=== PATIENT | male | born 1970 | race Caucasian/White ===

== ENCOUNTER 2021-09-25 14:45 | Observation (INO) ==
[2021-09-25] MEDS ORDERED: SODIUM CHLORIDE 0.9% 1000ML 1,000 ML IV STA (14:47)
--- NOTE | 2021-09-25 14:58 | Emergency Department Note ---
History of Present Illness General Chief complaint: Tachycardia Stated complaint: IRREFULAR HEARTBEAT Time Seen by Provider: 09/25/21 14:47 History of Present Illness This 50-year-old male presents today with his , for evaluation of dizziness and irregular heartbeat that developed yesterday. Patient states he was in his usual state of health and felt fine yesterday. He went for a 3 mile run in the afternoon. After the run, he developed dizziness. He thought it would go away, but it did not. He states he woke up around 3 AM to go to the bathroom. He was dizzy at that point and had difficulty ambulating. It persisted this morning. A physician friend came to see him this morning and felt that his heartbeat was irregular. They recommended he come to the ED for evaluation. He denies any history of irregular heartbeat. He states he has had a similar dizziness approximately 2 years ago while in [place]. He had a stress test at that point that was reportedly normal. No cause was found. He denies any history of heart issues. He denies any new medications other than a B vitamin supplement. He feels he eats very healthy and maintains his hydration. He does not smoke or drink. No other complaints. He denies any chest pain, shortness of breath, or leg pain. No headache or change in vision. He states he ate well today without issue. Home Medications Medication Instructions Recorded Confirmed Type vitamin B complex 1 tab PO DAILY 09/25/21 09/25/21 History Allergies Allergy/AdvReac Type Severity Reaction Status Date / Time Penicillins Allergy Severe HIVES, Verified 09/25/21 15:56 SWELLING OF THROAT--TOLD NOT TO TAKE Past Med/Surg History Medical History No pertinent past medical history Surgical History No pertinent past surgical history Family History Other No pertinent family history Social History Smoking Status: Never smoker Hx Alcohol Use: No Hx Substance Use: No Preferred Language: Azerbaijani Communication Ability: Effective Hearing Ability: Normal 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 Beliefs That Will Affect Care: None marital status: Current Living Situation: Spouse current occupational status: employed Other Information That Helps Us Care for You: No Feels Safe at Home: Yes Safety Concerns: Feels Safe At This Time Assistive Devices: None Review of Systems A total of 10 systems reviewed and were otherwise negative Physical Exam Vital Signs Vital Signs - 24 hr 09/25/21 14:57 09/25/21 15:30 09/25/21 16:30 Temperature 36.8 C Temperature Source Oral Pulse Rate 68 Pulse Rate [Apical] 69 74 Pulse Rhythm Irregular Pulse Rhythm [Apical] Irregular Irregular Respiratory Rate 19 14 14 Blood Pressure 136/93 Blood Pressure [Right Arm] 122/79 126/79 Blood Pressure Mean 107 Blood Pressure Mean [Right Arm] 93 94 Pulse Oximetry 98 97 96 Oxygen Delivery Method Room Air Room Air Room Air Sepsis Recent Fever Within 48 Hours No Sepsis New/Unexplained Change in Mental Status No Sepsis Action Taken by Nursing No Action Required 09/25/21 17:01 09/25/21 17:41 09/25/21 18:00 Temperature Temperature Source Pulse Rate Pulse Rate [Apical] 63 74 67 Pulse Rhythm Pulse Rhythm [Apical] Irregular Irregular Respiratory Rate 18 14 14 Blood Pressure Blood Pressure [Right Arm] 125/85 120/73 122/87 Blood Pressure Mean Blood Pressure Mean [Right Arm] 98 88 98 Pulse Oximetry 96 97 98 Oxygen Delivery Method Room Air Room Air Room Air Sepsis Recent Fever Within 48 Hours Sepsis New/Unexplained Change in Mental Status Sepsis Action Taken by Nursing 09/25/21 18:32 09/25/21 19:15 Temperature Temperature Source Pulse Rate Pulse Rate [Apical] 71 74 Pulse Rhythm Pulse Rhythm [Apical] Respiratory Rate 18 18 Blood Pressure Blood Pressure [Right Arm] 135/89 134/84 Blood Pressure Mean Blood Pressure Mean [Right Arm] 104 100 Pulse Oximetry 98 97 Oxygen Delivery Method Room Air Room Air Sepsis Recent Fever Within 48 Hours Sepsis New/Unexplained Change in Mental Status Sepsis Action Taken by Nursing General: Well-developed, well-nourished, middle-aged white male, in no acute distress. Laying on the bed. Alert and oriented. Conversive. Skin: Warm and dry with good turgor. No rashes or lesions. No ecchymosis or erythema. The patient is not diaphoretic. No abrasions. HEENT: Normocephalic atraumatic. Eyes PERRLA, EOMI. No conjunctiva or scleral injection. No nystagmus. Nares patent bilaterally without turbinate enlarg ement. No significant drainage. No epistaxis. Oropharynx without erythema or exudate. Uvula midline, oral mucosa moist. No lesions present. Lymphatics are palpated without anterior or posterior chain enlargement or tenderness. Heart: Irregularly irregular. No murmurs, gallops, or rubs. Peripheral pulses are 2+. Lungs: Lungs are clear to auscultation. No crackles rhonchi or wheezing. Good air movement. The patient is able to take a deep breath. Abdomen: Abdomen was inspected, auscultated, and palpated. Bowel sounds present x 4. Soft, nontender to palpation. No hepato-splenomegaly. No masses noted. No rebound. No CVA tenderness. Musculoskeletal: Gross motor function of the upper and lower extremities is intact and unremarkable. Neurologic: Cranial nerves II through XII are intact. Gross sensation is intact across the upper and lower extremities by soft touch. Course Administered Medications Discontinued Medications Apixaban (Apixaban 5 Mg Tablet) 5 mg PO ONE ONE Stop: 09/25/21 15:56 Last Admin: 09/25/21 16:22 Dose: 5 mg Documented by: [id number] Flecainide Acetate (Flecainide Acetate 100 Mg Tablet) 200 mg PO ONE ONE Stop: 09/25/21 15:55 Last Admin: 09/25/21 16:22 Dose: 200 mg Documented by: [id number] Flecainide Acetate (Flecainide Acetate 100 Mg Tablet) 100 mg PO ONE STA Stop: 09/25/21 17:53 Last Admin: 09/25/21 18:50 Dose: Not Given Documented by: [id number] Sodium Chloride (Nss 1000ml) 1,000 mls @ 999 mls/hr IV .Q1H1M STA Stop: 09/25/21 15:47 Last Infusion: 09/25/21 15:58 Dose: 0 mls/hr Documented by: [id number] Admin: 09/25/21 14:57 Dose: 999 mls/hr Documented by: [id number] Medical Decision Making Differential Diagnosis Atrial fibrillation, dehydration, vertigo, intracranial mass, anemia, arrhythmia Medical Records Attestation: I reviewed the patient's medical records. Home Medications Current Medication List: was personally reviewed by me Laboratory Data CBC, INR, TSH, and chemistry panel were obtained. They are all unremarkable. Troponin was also obtained today and is unremarkable. TSH is normal. Result diagrams: 09/25/21 14:45 09/25/21 14:45 Lab Results 09/25/21 09/25/21 09/25/21 Range/Units 14:45 14:45 14:45 WBC 6.42 (4.8-10.8) K/uL RBC 5.77 (4.7-6.1) M/uL Hgb 17.4 (14.0-18.0) g/dL Hct 49.0 (42-52) % MCV 84.9 (80-100) fL MCH 30.2 (25-34) pg MCHC 35.5 (32-36) g/dL RDW Std Deviation 39.1 (36.4-46.3) fL RDW Coeff of Kindra 12.6 (11.5-14.5) % Plt Count 216 (130-400) K/uL MPV 10.3 (7.4-10.4) fL Immature Gran % (Auto) 0.0 % Neut % (Auto) 59.2 % Lymph % (Auto) 31.0 % Grady % (Auto) 8.4 % Eos % (Auto) 1.1 % Baso % (Auto) 0.3 % Neut # (Auto) 3.80 (1.4-6.5) K/uL Lymph # (Auto) 1.99 (1.2-3.4) K/uL Grady # (Auto) 0.54 (0.11-0.59) K/uL Eos # (Auto) 0.07 (0-0.5) K/uL Baso # (Auto) 0.02 (0-0.2) K/uL Immature Gran # (Auto) 0.00 (0.00-0.02) K/uL PT 11.3 (9.0-12.0) Seconds INR 1.1 (0.9-1.1) Sodium 140 (136-145) mmol/L Potassium 4.2 (3.5-5.1) mmol/L Chloride 104 (98-107) mmol/L Carbon Dioxide 28 (21-32) mmol/L Anion Gap 8 (3-11) BUN 19 (6-23) mg/dl Creatinine 0.90 (0.6-1.4) mg/dl Est Cr Clr Drug Dosing 109.0 ml/min Est GFR ( Amer) 115.8 ml/min Est GFR (Non-Af Amer) 99.9 ml/min BUN/Creatinine Ratio 21.1 H (10-20) Glucose 95 (70-99(Fasting)) mg/dl Calcium 9.0 (8.5-10.1) mg/dl Magnesium 1.8 (1.7-2.4) mg/dl Total Bilirubin 0.7 (0.2-1.0) mg/dl AST 18 (13-39) U/L ALT 18 (7-52) U/L Alkaline Phosphatase 42 (34-104) U/L Troponin I < 0.03 (0-0.04) ng/ml Total Protein 6.6 (6.0-8.3) gm/dl Albumin 4.2 (3.4-5.0) gm/dl Globulin 2.4 L (2.5-4.0) gm/dl Albumin/Globulin Ratio 1.8 (0.9-2) TSH (0.300-4.500) uIu/ml Urine Color Urine Appearance (Clear) Urine pH (4.5-7.5) Ur Specific [place] (1.000-1.030) Urine Protein (Negative) Urine Glucose (UA) (Negative) Urine Ketones (Negative) Urine Blood (Negative) Urine Nitrite (Negative) Urine Bilirubin (Negative) Urine Urobilinogen (Negative) Ur Leukocyte Esterase (Negative) SARS-CoV-2, RNA, NAAT (NEGATIVE) 09/25/21 09/25/21 09/25/21 Range/Units 14:45 17:59 18:34 WBC (4.8-10.8) K/uL RBC (4.7-6.1) M/uL Hgb (14.0-18.0) g/dL Hct (42-52) % MCV (80-100) fL MCH (25-34) pg MCHC (32-36) g/dL RDW Std Deviation (36.4-46.3) fL RDW Coeff of Kindra (11.5-14.5) % Plt Count (130-400) K/uL MPV (7.4-10.4) fL Immature Gran % (Auto) % Neut % (Auto) % Lymph % (Auto) % Grady % (Auto) % Eos % (Auto) % Baso % (Auto) % Neut # (Auto) (1.4-6.5) K/uL Lymph # (Auto) (1.2-3.4) K/uL Grady # (Auto) (0.11-0.59) K/uL Eos # (Auto) (0-0.5) K/uL Baso # (Auto) (0-0.2) K/uL Immature Gran # (Auto) (0.00-0.02) K/uL PT (9.0-12.0) Seconds INR (0.9-1.1) Sodium (136-145) mmol/L Potassium (3.5-5.1) mmol/L Chloride (98-107) mmol/L Carbon Dioxide (21-32) mmol/L Anion Gap (3-11) BUN (6-23) mg/dl Creatinine (0.6-1.4) mg/dl Est Cr Clr Drug Dosing ml/min Est GFR ( Amer) ml/min Est GFR (Non-Af Amer) ml/min BUN/Creatinine Ratio (10-20) Glucose (70-99(Fasting)) mg/dl Calcium (8.5-10.1) mg/dl Magnesium (1.7-2.4) mg/dl Total Bilirubin (0.2-1.0) mg/dl AST (13-39) U/L ALT (7-52) U/L Alkaline Phosphatase (34-104) U/L Troponin I (0-0.04) ng/ml Total Protein (6.0-8.3) gm/dl Albumin (3.4-5.0) gm/dl Globulin (2.5-4.0) gm/dl Albumin/Globulin Ratio (0.9-2) TSH 1.143 (0.300-4.500) uIu/ml Urine Color Yellow Urine Appearance Clear (Clear) Urine pH 7.0 (4.5-7.5) Ur Specific [place] 1.009 (1.000-1.030) Urine Protein Negative (Negative) Urine Glucose (UA) Negative (Negative) Urine Ketones Negative (Negative) Urine Blood Negative (Negative) Urine Nitrite Negative (Negative) Urine Bilirubin Negative (Negative) Urine Urobilinogen Negative (Negative) Ur Leukocyte Esterase Negative (Negative) SARS-CoV-2, RNA, NAAT NEGATIVE (NEGATIVE) Imaging Data My Impression: Chest x-ray obtained today is unremarkable. This was reviewed by me and read by radiology. Radiologist's Impression: Chest X-Ray 09/25/21 14:49 XR chest 1V portable CLINICAL HISTORY: Dysrhythmia. COMPARISON STUDY: No previous studies for comparison. FINDINGS: Lung volumes are normal. Lungs are clear. There is no pneumothorax or pleural effusion. Cardiac size is normal. Mediastinal contours are normal. There is no evidence for pulmonary edema. IMPRESSION: No acute cardiopulmonary findings. ACT 112: Negative or not required by law. Electronically signed by: Romel Hoffman M.D. 09/25/2021 3:38 PM ECG Data Additional Comments: EKG obtained today was reviewed by me and discussed with Dr. Barksdale. It shows atrial fibrillation with a rate of 77. No other abnormalities are noted. Blood Pressure Blood Pressure Findings: Low blood pressure MDM Narrative Patient was evaluated in room C5. Conservative care measures were discussed. IV was established. Labs were obtained. He was hydrated with 1 L normal sterile saline IV bolus. Patient was placed on a school bus monitor. He remained on the monitor while in the ED. Heart rate varied between the low 70s up to the low 100s based on the atrial fibrillation. EKG was obtained that showed atrial fibrillation. Patient denies any prior history of atrial fib. Chest x-ray was obtained and is unremarkable. I did speak with Dr. Bird from cardiology. He recommended use of flecainide 200 mg and monitoring for an hour. This was done as recommended, but the pat ient remained in atrial fibrillation. He was also given Eliquis 5 mg p.o. prior to the flecainide. As the patient did not cardiovert, I did speak with Dr. Redmond again. He recommended medical admission with possible cardioversion tomorrow morning by cardiology if the patient does not spontaneously convert. [facility] hospitalist service (Dr. Suresh) was consulted. Please see that dictation for final management. Patient remained stable while in the ED. Covid test was obtained and was negative. He was seen in conjunction with Dr. Barksdale, who also evaluated the patient and concurred with today's diagnosis and treatment plan. Impression & Plan Atrial fibrillation Admission. Possible cardioversion tomorrow morning by cardiology. Discharge Plan Visit Data Chief Complaint: Tachycardia Stated Complaint: IRREFULAR HEARTBEAT ED Provider: Chris Barksdale ED Midlevel Provider: Renato Collazo Discharge Problem: Atrial fibrillation Forms Stand Alone Forms: [facility] Prescriptions Prescriptions: No Action vitamin B complex Tablet 1 tab PO DAILY RF: 0 Referrals Referrals: PCP,NO [Physician] - Discharge Problem: Atrial fibrillation Qualifiers: Atrial fibrillation type: unspecified Qualified Code(s): I48.91 - Unspecified atrial fibrillation
[2021-09-25 15:00] LABS: Basophils # (auto) 0.02 K/uL (0-0.2); Basophils % (auto) 0.3 %; Eosinophils # (auto) 0.07 K/uL (0-0.5); Eosinophils % (auto) 1.1 %; Hemoglobin 17.4 g/dL (14.0-18.0); Lymphocytes # (auto) 1.99 K/uL (1.2-3.4); Mean Corpuscular Hemoglobin 30.2 pg (25-34); Mean Corpuscular Hgb Conc 35.5 g/dL (32-36); Mean Corpuscular Volume 84.9 fL (80-100); Mean Platelet Volume 10.3 fL (7.4-10.4); Monocytes # (auto) 0.54 K/uL (0.11-0.59); Monocytes % (auto) 8.4 %; Neutrophils % (auto) 59.2 %; Platelet Count 216 K/uL (130-400); RDW Coefficient of Variation 12.6 % (11.5-14.5); RDW Standard Deviation 39.1 fL (36.4-46.3); Red Blood Count 5.77 M/uL (4.7-6.1); White Blood Count 6.42 K/uL (4.8-10.8)
[2021-09-25 15:16] LABS: INR 1.1 (0.9-1.1); Prothrombin Time 11.3 Seconds (9.0-12.0)
[2021-09-25 15:27] LABS: Troponin I < 0.03 ng/ml (0-0.04)
[2021-09-25 15:36] LABS: Alanine Aminotransferase 18 U/L (7-52); Albumin Globulin Ratio 1.8 (0.9-2); Albumin Level 4.2 gm/dl (3.4-5.0); Alkaline Phosphatase 42 U/L (34-104); Anion Gap 8 (3-11); Aspartate Aminotransferase 18 U/L (13-39); BUN Creatinine Ratio 21.1 (10-20); Bilirubin,Total 0.7 mg/dl (0.2-1.0); Blood Urea Nitrogen 19 mg/dl (6-23); Carbon Dioxide 28 mmol/L (21-32); Chloride 104 mmol/L (98-107); Est GFR (African American) 115.8 ml/min; Est GFR (Non-African American) 99.9 ml/min; Globulin 2.4 gm/dl (2.5-4.0); Glucose 95 mg/dl (70-99(Fasting)); Magnesium 1.8 mg/dl (1.7-2.4); Potassium 4.2 mmol/L (3.5-5.1); Sodium 140 mmol/L (136-145); Total Protein 6.6 gm/dl (6.0-8.3)
--- NOTE | 2021-09-25 15:39 | XRay Report ---
XR chest 1V portable CLINICAL HISTORY: Dysrhythmia. COMPARISON STUDY: No previous studies for comparison. FINDINGS: Lung volumes are normal. Lungs are clear. There is no pneumothorax or pleural effusion. Car diac size is normal. Mediastinal contours are normal. There is no evidence for pulmonary edema. IMPRESSION: No acute cardiopulmonary findings. ACT 112: Negative or not required by law. Electronically signed by: Romel Hoffman M.D. 09/25/2021 3:38 PM
[2021-09-25] MEDS ORDERED: FLECAINIDE ACETATE 100 MG TABLET PO ONE (15:54)
[2021-09-25] MEDS ORDERED: APIXABAN 5 MG TABLET PO ONE (15:55)
--- NOTE | 2021-09-25 16:31 | Emergency Department Note ---
ED Visit Note Physician Evaluation Note: I have personally evaluated and examined this patient. I agree with assessment and plan of Renato Collazo PA-C. Patient arrives in A. fib symptomatic for the last 24 hours following running about 5 km yesterday. He had no symptoms prior to this. He does have a remote history of a similar episode though was never diagnosed with A. fib at that time. He is on no blood thinners or any other medications. He looks well other than he just says he does not feel right and somewhat symptomatic. Blood pressure is good heart rates in the 60s and 70s A. fib. Chris Barksdale MD : Atrial fibrillation Qualifiers: Atrial fibrillation type: unspecified Qualified Code(s): I48.91 - Unspecified atrial fibrillation
--- NOTE | 2021-09-25 17:37 | History & Physical Report ---
Date of Service September 25, 2021 Assessment & Plan (1) Atrial fibrillation: Plan: -With regular rate. Persistent dizziness/weakness onset 7:30 PM yesterday after running 3 miles. No other symptoms, cannot feel he his in afibb, no noticeable palpitations/chest pain/SOB/weakness/dizziness over the past month to indicate patient has been intermittently in afibb prior to last evening. -Both ED provider and Dr. Suresh spoke with Dr. Marge hinojosa/ cardiology, who recommends Eliquis 5 mg BID, flecainide, if patient does not convert to NSR by tomorrow, plan to cardiovert -Prabhakar received flecainide 200 mg PO in ED, after 1 hour he did not convert to NSR so Dr. Bird requested another 100 mg flecainide to be given, howver prior to recieving this dose, patient reportedly converted to NSR. -NPO midnight. -TTE in AM. -Decision whether or not to convert can be made tomorrow if patient goes back into afibb. Plan: -Admit to med/tele. -SCDs, Eliquis for DVT ppx. -Full Code. History of Present Illness Chief Complaint: Dizziness with irregular heart rate Primary Care Provider: Jessika Mcgee MD Patient is a 50-year-old previously healthy male who presents today from home for evaluation of dizziness and irregular heartbeat that developed yesterday. Patient states he was in his usual state of health and felt fine yesterday.He went for a 3 mile run. After the run, he developed dizziness that has persisted since then, according to his apple watch his run ended at 7:00 and within 30 minutes of stopping his run, he started noticing the dizziness.A physician friend came to see him this morning and felt that his heartbeat was irregular. They recommended he come to the ED for evaluation. He denies any cardiac history, but does state that he had a similar experience with dizziness approximately 2 years ago while in [place]. He had a stress test and possibly a more extensive cardiac workup (do not have records) at that point that was reportedly normal, no cause was found. He was previously healthy and in his normal state of health prior to this, not on any medications other than a B vitamin supplement. He eats well, runs regularly, does not smoke or drink alcohol. No other complaints, specifically denies recent fever/chills, weakness, syncope, chest pain, palpitations, shortness of breath, abdominal pain, headache, vision changes, focal sensory or motor deficits. In ED, he is in afibb on initial EKG with rate < 100. Vital signs stable, wnl. Labs unremarkable. Cardiology was consulted by ED who recommended Eliquis BID and flecainide in ED to see if patient would convert to NSR. He has received Eliquis, flecainide x1. Hospitalist service was consulted for further evaluation and admission. Allergies Allergy/AdvReac Type Severity Reaction Status Date / Time Penicillins Allergy Severe HIVES, Verified 09/25/21 15:56 SWELLING OF THROAT--TOLD NOT TO TAKE Home Medications Medication Instructions Recorded Confirmed Type vitamin B complex 1 tab PO DAILY 09/25/21 09/25/21 History apixaban 5 mg tablet (Eliquis) 5 mg PO BID #60 tab 09/26/21 Rx metoprolol succinate 25 mg 25 mg PO HS #30 tab 09/26/21 Rx tablet,extended release 24 hr Past Med/Surg History Medical History No pertinent past medical history Surgical History No pertinent past surgical history Family History Other No pertinent family history Social History Smoking Status: Never smoker Hx Alcohol Use: No Hx Substance Use: No Preferred Language: Yi Communication Ability: Effective Hearing Ability: Normal 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 Beliefs That Will Affect Care: None marital status: Current Living Situation: Spouse current occupational status: employed Other Information That Helps Us Care for You: No Feels Safe at Home: Yes Safety Concerns: Feels Safe At This Time Assistive Devices: None Review of Systems Review of Systems: Constitutional: dizziness/weakness since 7:30 PM yesterday 09/24/21; No fever/chills, myalgias, anorexia, night sweats Eyes: No diplopia, no worsening or blurred vision ENT: normal hearing, no trouble swallowing Respiratory: No cough, sputum, dyspnea at rest or on exertion Cardiovascular: No chest pain, tightness or palpitations Abdomen: No pain, nausea, vomiting, diarrhea or constipation : Denies dysuria, hematuria, increased urgency/frequency, urinary retention Musculoskeletal: No joint pain, calf pain, swelling Neurologic: No weakness, numbness/tingling, or balance problems Psychiatric: No anxiety or depression Skin: No rash or itch Physical Exam Physical Exam: General: awake, alert, no apparent distress Head: Normocephalic, atraumatic ENT: PERRL, EOMI, no pharyngeal exudate, mucous membranes moist Chest: Clear to auscultation, on room air, no adventitious breath sounds Cardiac: irregularly irregular rhythem with regular rate, no murmur, no JVD, normal peripheral pulses, good capillary refill Abdominal: NABS x 4 quadrants, soft, nontender to palpation, no rebound, guarding or tenderness Extremities: Normal inspection, no peripheral edema or erythema, calfs nontender to palpation Psych: Normal mood and affect Neuro: AAO x 3, strength intact bilaterally and rated 5/5, no motor deficits, speech is clear, no peripheral sensory deficits Skin: no rash or erythema Results & Data Results & Data ([facility]) Vital Signs (Past 12 Hours) Vital Signs Temp Pulse Pulse Resp BP BP Pulse Ox 09/25/21 17:01 63 18 125/85 96 09/25/21 16:30 74 14 126/79 96 09/25/21 15:30 69 14 122/79 97 09/25/21 14:57 36.8 C 68 19 136/93 98 Laboratory Results Abnormal lab results 09/25/21 Range/Units 14:45 BUN/Creatinine Ratio 21.1 H (10-20) Globulin 2.4 L (2.5-4.0) gm/dl Diagnostic Findings Chest X-Ray 09/25/21 14:49 XR chest 1V portable CLINICAL HISTORY: Dysrhythmia. COMPARISON STUDY: No previous studies for comparison. FINDINGS: Lung volumes are normal. Lungs are clear. There is no pneumothorax or pleural effusion. Cardiac size is normal. Mediastinal contours are normal. There is no evidence for pulmonary edema. IMPRESSION: No acute cardiopulmonary findings. ACT 112: Negative or not required by law. ECG Additional Comments: Atrial fibrillation Abnormal ECG No previous ECGs available. Code Status & VTE Plan Code Status Full Code. VTE Prophylaxis Plan VTE Prophylaxis will be ordered: Yes Supervising Physician Co-Signing Physician Notes I personally saw and examined the patient. I verified all vargas points and agree with Jessy Odell PA-C with the following exceptions and/or additions: 50 year old male admission for dizziness. Rate controlled a. fib on monitor and EKG. Flecainide 200mg PO given in the ER. O/E HS1+2, regular rate, irregularly irregular rhythm, Chest CTAB, Abdo SNT A/P Atrial fibrillation - Eliquis and flecainide given in ER. Addition flecainide 100mg PO now as discussed with Dr Bird. Consult cardiology. PG Care Time/CCT Total # of Minutes Spent Total Time Spent with Patient: Total time spent is greater than 50% in coordination of care (as documented) at patient's floor/unit and/or counseling patient: Coding Level of Care Code 76961 Initial Inpt Care Lvl 2 Diagnoses Atrial fibrillation I48.91
[2021-09-25] MEDS ORDERED: FLECAINIDE ACETATE 100 MG TABLET PO STA (17:52)
[2021-09-25 18:54] LABS: Appearance Urine Clear (Clear); Bilirubin Urine Negative (Negative); Blood Urine Negative (Negative); Color Urine Yellow; Glucose Urine UA Negative (Negative); Ketones Urine Negative (Negative); Leukocyte Esterase Urine Negative (Negative); Nitrite Urine Negative (Negative); Protein Urine Negative (Negative); Specific Gravity Urine 1.009 (1.000-1.030); Urobilinogen Urine Negative (Negative)
[2021-09-25] MEDS ORDERED: ACETAMINOPHEN 325 MG TAB PO PRN (21:00)
[2021-09-25] MEDS ORDERED: POLYETHYLENE (MIRALAX) 17 GM PACK PO PRN (21:00)
[2021-09-25] MEDS ORDERED: METOPROLOL SUCC 25MG EXT REL TAB PO SCH (21:25)
[2021-09-25] MEDS: LACTATED RINGER'S 1,000 ML IV SCH (22:08)
[2021-09-26 07:30] LABS: Basophils # (auto) 0.01 K/uL (0-0.2); Basophils % (auto) 0.2 %; Eosinophils # (auto) 0.11 K/uL (0-0.5); Hematocrit (blood only) 45.3 % (42-52); Hemoglobin 15.5 g/dL (14.0-18.0); Immature Granulocytes # (auto) 0.01 K/uL (0.00-0.02); Immature Granulocytes % (auto) 0.2 %; Lymphocytes # (auto) 2.12 K/uL (1.2-3.4); Lymphocytes % (auto) 37.7 %; Mean Corpuscular Hemoglobin 29.4 pg (25-34); Mean Corpuscular Hgb Conc 34.2 g/dL (32-36); Mean Corpuscular Volume 85.8 fL (80-100); Monocytes # (auto) 0.58 K/uL (0.11-0.59); Monocytes % (auto) 10.3 %; Neutrophils # (auto) 2.79 K/uL (1.4-6.5); Neutrophils % (auto) 49.6 %; Platelet Count 180 K/uL (130-400); RDW Coefficient of Variation 12.6 % (11.5-14.5); RDW Standard Deviation 39.8 fL (36.4-46.3); Red Blood Count 5.28 M/uL (4.7-6.1); White Blood Count 5.62 K/uL (4.8-10.8)
[2021-09-26 07:54] LABS: BUN Creatinine Ratio 17.2 (10-20); Calcium 8.3 mg/dl (8.5-10.1); Creatinine Clr Calc Pharmacy 99.1 ml/min; Est GFR (African American) 103.2 ml/min; Est GFR (Non-African American) 89.1 ml/min
[2021-09-26] MEDS ORDERED: APIXABAN 5 MG TABLET PO SCH (09:15)
--- NOTE | 2021-09-26 09:20 | Cardiology Consultation ---
Date of Consultation September 26, 2021 Assessment & Plan (1) Atrial fibrillation: Mr. Gurrola was given flecainide in the ED and converted before he got to the floor. He has been in sinus rhythm since. Troponin was wnl. Echo pending. No obvious trigger for his episode. Electrolytes were wnl. He feels well and at his baseline at this point. He should be maintained on beta blockers - metoprolol succinate 25 mg daily. He can return to exercise. He should continue with the apixaban for 2 weeks. I discussed with him that he should avoid NSAIDs and use Tylenol for pain during this time. He should avoid activities where he could hit his head or are at risk for bleeding. His CHADS-VASc is 0 so he can discontinue blood thinners after that period. We will see him in the office for close follow up. We can discuss flecainide as a pill in pocket outpatient. History of Present Illness Attending Physician: Smooth Ayala MD History of Present Illness Mr. Gurrola presented last evening for dizziness and irregular heart beat which developed after running two evenings ago. His run was more of a jog/walk as he had not been out in about a month. He noticed that his heart rate was in the 180s at the end which was much higher than usual during exercise for him. He felt dizzy but no palpitations, sob, or chest pain. He did have a similar episode two years ago with dizziness. He had a stress test at that point that was reportedly normal. He does not drink alcohol or smoke. He was well hydrated. He does not take any other substances or use medical marijuana. Today he feels at his baseline. 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 [employer], no alcohol, no tobacco, no other substances Family: mother developed afib in her 70s, father of cancer Allergies Allergy/AdvReac Type Severity Reaction Status Date / Time Penicillins Allergy Severe HIVES, Verified 09/25/21 15:56 SWELLING OF THROAT--TOLD NOT TO TAKE Home Medications Medication Instructions Recorded Confirmed Type vitamin B complex 1 tab PO DAILY 09/25/21 09/25/21 History apixaban 5 mg tablet (Eliquis) 5 mg PO BID #60 tab 09/26/21 Rx metoprolol succinate 25 mg 25 mg PO HS #30 tab 04/04/22 Rx tablet,extended release 24 hr Patient History Medical History No pertinent past medical history Surgical History No pertinent past surgical history Family History Other No pertinent family history Social History Smoking Status: Never smoker Hx Alcohol Use: No Hx Substance Use: No Preferred Language: Wallisian Communication Ability: Effective Hearing Ability: Normal 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 Beliefs That Will Affect Care: None marital status: Current Living Situation: Spouse current occupational status: employed Other Information That Helps Us Care for You: No Feels Safe at Home: Yes Safety Concerns: Feels Safe At This Time Assistive Devices: None Review of Systems Review of Systems: All systems reviewed & are unremarkable except as noted in HPI & below Physical Exam Constitutional: WD/WN, vitals as above Respiratory: normal respiratory effort, lungs clear to auscultation Cardiovascular: RRR, no murmur, no edema Skin: no rashes, warm and dry Neurologic: moves all extremities and awake Psychiatric: A+Ox3, euthymic affect Results & Data ([facility]) Vital Signs (Past 12 Hours) Vital Signs Temp Pulse Pulse Pulse Resp BP BP 09/26/21 07:15 36.7 C 61 14 110/70 09/26/21 04:27 70 09/26/21 03:08 36.5 C 68 18 120/72 09/26/21 00:55 36.7 C 75 16 121/82 09/25/21 23:16 36.8 C 70 18 124/72 Pulse Ox 09/26/21 07:15 95 09/26/21 04:27 09/26/21 03:08 96 09/26/21 00:55 98 09/25/21 23:16 96 (1) Atrial fibrillation Atrial fibrillation type: unspecified Qualified Code(s): I48.91 - Unspecified atrial fibrillation
[2021-09-26] MEDS: LACTATED RINGER'S 1,000 ML IV SCH (10:13)
--- NOTE | 2021-09-26 12:32 | XCELERA ---
[id number]
--- NOTE | 2021-09-26 14:45 | Discharge Summary ---
Date of Service September 26, 2021 Admission HPI Per Admitting Provider Patient is a 50-year-old previously healthy male who presents today from home for evaluation of dizziness and irregular heartbeat that developed yesterday. Patient states he was in his usual state of health and felt fine yesterday.He went for a 3 mile run. After the run, he developed dizziness that has persisted since then, according to his apple watch his run ended at 7:00 and within 30 minutes of stopping his run, he started noticing the dizziness.A physician friend came to see him this morning and felt that his heartbeat was irregular. They recommended he come to the ED for evaluation. He denies any cardiac history, but does state that he had a similar experience with dizziness approximately 2 years ago while in [place]. He had a stress test and possibly a more extensive cardiac workup (do not have records) at that point that was reportedly normal, no cause was found. He was previously healthy and in his normal state of health prior to this, not on any medications other than a B vitamin supplement. He eats well, runs regularly, does not smoke or drink alcohol. No other complaints, specifically denies recent fever/chills, weakness, syncope, chest pain, palpitations, shortness of breath, abdominal pain, headache, vision changes, focal sensory or motor deficits. In ED, he is in afibb on initial EKG with rate < 100. Vital signs stable, wnl. Labs unremarkable. Cardiology was consulted by ED who recommended Eliquis BID and flecainide in ED to see if patient would convert to NSR. He has received Eliquis, flecainide x1. Hospitalist service was consulted for further evaluation and admission. Principal Diagnosis Atrial fibrillation Discharge Exam Constitutional WD/WN, vitals as above Eyes EOM intact bilaterally; no conjunctival abnormality ENMT external ear and nose normal, oropharynx normal Neck trachea midline, no thyromegaly normal visual inspection Respiratory normal respiratory effort, lungs clear to auscultation no respiratory distress Cardiovascular RRR, no murmur, no edema Gastrointestinal (Abdomen) Inspection/Auscultation: abdomen normal to inspection; abdomen not distended Musculoskeletal no cyanosis or clubbing, extremities motor strength 5/5 Skin no rashes, warm and dry Neurologic moves all extremities and awake Psychiatric Orientation: alert, oriented to person and cooperative Discharge Data Allergies Allergy/AdvReac Type Severity Reaction Status Date / Time Penicillins Allergy Severe HIVES, Verified 09/25/21 15:56 SWELLING OF THROAT--TOLD NOT TO TAKE Consultations 09/25/21 17:48 ED Decision to Admit Stat Hospital Course (1) Atrial fibrillation: -With regular rate. Persistent dizziness/weakness onset 7:30 PM yesterday after running 3 miles. No other symptoms, cannot feel he his in afibb, no noticeable palpitations/chest pain/SOB/weakness/dizziness over the past month to indicate patient has been intermittently in afib prior to last evening. - Both ED provider and Dr. Suresh spoke with Dr. Bird w/ cardiology, who recommends Eliquis 5 mg BID, flecainide, if patient does not convert to NSR by tomorrow, plan to cardiovert - Patient received flecainide 200 mg PO in ED, after 1 hour he did not convert to NSR so Dr. Bird requested another 100 mg flecainide to be given, however prior to receiving this dose, patient converted to NSR. - TTE showed normal EF, no valvular issues. - Discharged per cardiology on metoprolol XL 25 mg PO HS & Eliquis for 2-3 weeks. Will f/u with Dr. Bird or Lisa Melchor in the office. Total Time Total Time Spent Total Time Spent (In Minutes): 35 Discharge Plan Discharge Items Patient Disposition: Home - Self-Care Reason For Visit: AFIBB Discharge Diagnosis: Atrial fibrillation Activity: Resume your previous activity Non-emergency contact: Primary Care Provider and Employment Training Specialist Call non-emergency contact if: your symptoms worsen Follow-up/Referrals: Ethan Bird, [Physician] - (Please follow up with cardiology in 1-2 weeks. If you don't hear from them by Sunday afternoon, call the office on Sunday.) Jessika Mcgee MD [Primary Care Provider] - 10/03/21 10:50 am Diet: Regular Addtl Attending Provider Instructions: Mr. Gurrola, You were admitted to the hospital with a heart rhythm called atrial fibrillation. This is a very common heart rhythm issue that can affect anyone, though usually it affects older adults. Your heart went into this rhythm, then went back into a rhythm that we called "normal sinus rhythm" after a dose of medication. This episode doesn't change anything about your heart, but it does reveal to us that you have a larger propensity to go into this rhythm than the average person. To protect you from stroke, we are sending you home on a blood thinner. You take this medication in the morning and evening (about 12 hours apart). You will hopefully only need to be on this medication for 3-4 weeks if you do not go back into atrial fibrillation. The second medication is a "beta-wendy" called metoprolol that helps lower stress on your heart and help slow your heart rate down should you go into atrial fibrillation again. If you do feel yourself go into atrial fibrillation again, please call Dr. Bird's office right away. You do not need to come to the ER just because of the atrial fibrillation, but if you feel lightheaded, dizzy, pass out, have chest pain or shortness of breath, you should return to the ER. Pending Studies at Discharge: No Stand-Alone Forms: My [facility] [employer], Smoking Cessation Medications and DC Order Prescriptions: New Eliquis 5 mg Tablet 5 mg PO BID Qty: 60 RF: 0 metoprolol succinate 25 mg Tablet Extended Release 24 Hr 25 mg PO HS Qty: 30 RF: 0 Continued vitamin B complex Tablet 1 tab PO DAILY RF: 0 Discharge Orders: Discharge Order (Routine); Ordered 09/26/21 Ordered By: Smooth Ayala Admission Data Admit Date/Time: 09/25/21 17:39 Attending Provider: Smooth Ayala Admit Provider: Zackary Suresh Primary Care Provider: Jessika Mcgee Other Providers: Smooth Ayala ; Zackary Suresh Other Interventions: Discharge Summary Assessment (RN) Last Done: 09/26/21 10:22 Coding Level of Care Code D/C DAY MANAGEMENT >30 MINS Diagnoses Atrial fibrillation I48.91 Atrial fibrillation type: unspecified
[2021-09-26] MEDS ORDERED: METOPROLOL SUCC 25MG EXT REL TAB PO SCH (21:00)
--- NOTE | 2021-09-27 06:37 | Electrocardiogram Report ---
Test Reason : Blood Pressure : / mmHG Vent. Rate : 077 BPM Atrial Rate : 202 BPM P-R Int : 000 ms QRS Dur : 088 ms QT Int : 368 ms P-R-T Axes : 000 085 043 degrees QTc Int : 416 ms Atrial fibrillation Abnormal ECG No previous ECGs available Confirmed by Himanshu Coreas ([id number]) on 09/27/2021 6:37:09 AM Referred By: REFERRED SELF Confirmed By:Himanshu Coreas
--- NOTE | 2021-09-27 06:47 | Electrocardiogram Report ---
Test Reason : Blood Pressure : / mmHG Vent. Rate : 063 BPM Atrial Rate : 063 BPM P-R Int : 226 ms QRS Dur : 088 ms QT Int : 404 ms P-R-T Axes : 069 087 043 degrees QTc Int : 413 ms Sinus rhythm with 1st degree A-V block Possible Left atrial enlargement Septal infarct , age undetermined Abnormal ECG When compared with ECG of 25-SEP-2021 14:29, (unconfirmed) Sinus rhythm has replaced Atrial fibrillation Confirmed by Himanshu Coreas ([id number]) on 09/27/2021 6:46:56 AM Referred By: REFERRED SELF Confirmed By:Himanshu Coreas
== END 2021-09-26 10:51 | disposition home or self-care (01) ==
LOC: ED 14:45 → 2N 17:39 → INTOOBSV 17:39 → SUATTDRO 17:39 → 2N 20:15